=== PATIENT | male | born 1965 | race Caucasian/White ===

== ENCOUNTER 2021-11-29 11:00 | Outpatient (RCR) | payer MEDICARE, MEDICAID, SELFPAY ==
[2021-11-08 10:12] VITALS: BP 157/82; PULSE 91; RESP 18; TEMP 35.7; BMI 62.6
--- NOTE | 2021-11-08 11:34 | PCM.WC.HP ---
History of Present Illness Date of Service: 11/08/21 Chief Complaint: B/L lateral leg ulceration secondary to lymphedema History of Wound: This 56-year-old male presents to the wound care center for chronic ulceration to bilateral legs. Patient has had these wounds on and off for the past 8 years. Patient notes that he has had these wounds completely healed temporarily, but they frequently recur. Patient notes that he is primarily homebound secondary to spinal issues which she is underwent lumbar fusion and seen multiple pain management doctors for in the past. He notes that he is unable to lay flat in bed and sleeps in a recliner on a nightly basis. He notes that he does not dress the wounds on a daily basis as he believes dressings causing more problems. He denies any fever chills nausea vomiting chest pain calf pain shortness of breath at this time peer he notes he has just been washing the area with warm water a daily basis is the only treatment he is currently performing. He denies any history of lymphedema pumps. He notes pain to the wound sites as well as itching and burning to the adjacent areas this is primarily aggravated with manipulation of the wound. No other complaints. [facility] Medical History (Updated 11/08/21 @ 11:[address] Kyle Donovan, DPDelmar) Fusion of lumbar spine Home Medications citalopram 40 mg PO DAILY 11/08/21 [History Last Taken Unknown] furosemide 40 mg PO DAILY 11/08/21 [History Last Taken Unknown] lisinopril 20 mg PO DAILY 11/08/21 [History Last Taken Unknown] metoprolol succinate 50 mg PO DAILY 11/08/21 [History Last Taken Unknown] Allergy/AdvReac Type Severity Reaction Status Date / Time cephalexin Allergy Hives Verified 11/08/21 10:38 sulfamethoxazole Allergy Hives Verified 11/08/21 10:38 [From Sulfamethoxazole-Trimethoprim] trimethoprim Allergy Hives Verified 11/08/21 10:38 [From Sulfamethoxazole-Trimethoprim] celecoxib [From Celebrex] AdvReac Other Verified 11/08/21 10:38 Social History Smoking Status: Current every day smoker ROS Constitutional Constitutional: Reports systems reviewed and no addt'l complaints, except as documented; Denies as per HPI, anorexia, body ache(s), change in weight, chills, daytime sleepiness, difficulty sleeping, excessive sweating, fatigue, fever(s), frequent falls, headache(s), increased appetite, lethargy, malaise, night sweats, poor appetite, snoring, stops breathing during sleep, weakness, weight gain, weight loss or other Eyes Eyes: Denies systems reviewed and no addt'l complaints, except as documented, as per HPI, none, acute decrease in peripheral vision, blindness, blind spots, bloody eye, blurry vision, burning, change in eye color, change in vision, decreased night vision, diplopia, discharge from eye(s), discongugate gaze, double vision, dry eyes, erythema, excessive blinking, exophthalmos, eye pain, floaters, foreign body, halo effect, irritation, itchy eyes, loss of central vision, loss of peripheral vision, loss of vision, miosis, mydriasis, numbness, nystagmus, other visual disturbances, periorbital itching, photophobia, ptosis, puffy eyes, requires corrective lenses, seeing flashes, spots in vision, sunken eyes, tearing, tunnel vision or other ENT HEENT: Denies systems reviewed and no addt'l complaints, except as documented, as per HPI, none, abnormal hearing, bleeding gums, change in voice, dental pain, disequillibrium, dizziness, dry mouth, dysphagia, ear discharge, ear pain, epistaxis, facial pain, foreign body in nose, halitosis, headache(s), hearing loss, hoarseness, lip swelling, loss taste/smell, mouth lesions, mouth pain, mucositis, nasal congestion, nasal discharge, nasal obstruction, nasal trauma, neck mass, neck pain, nose pain, odynophagia, otalgia, post nasal drip, rhinorrhea, sinus pain, sinus pressure, sore throat, throat swelling, tinnitus, tongue swelling, vertigo or other Vital Signs Vital Signs Vital Signs: 11/08/21 10:12 Temperature 96.2 F L Temperature Source Temporal Pulse Rate 91 Respiratory Rate 18 Blood Pressure 157/82 H Blood Pressure Mean 107 Blood Pressure Source Monitor Blood Pressure Position Sitting Blood Pressure Location Left Forearm Oxygen Delivery Method Room Air Weight Weight: 181.437 kg Body Mass Index (BMI) 62.6 Physical Exam Narrative Patient ambulates unassisted patient alert oriented to person place and time. Vascular dorsalis pedis posterior tibial pulses evaluated. DP pulses palpable 2 out of 4 dopplerable as well. PT pulses unable to be dopplered secondary to lymphedema. Digital hair growth noted refill time brisk to digits 1 through 5. +3 pitting edema noted to bilateral lower extremity focal erythema edema circumferentially to the mid calf level adjacent to periwound areas. Neurologic: Light touch protective sensation is intact to bilateral lower extremities. Dermatologic: Multiple ulcerations to bilateral lower extremity all wounds appear to be demonstrated fibrogranular base predebridement with debridement was demonstrated 100% granular bases with clean skin edges however there is noted to be diffuse periwound edema and erythema no focal increase in warmth at this time. No evidence of deep probing or undermining. No evidence of fluctuance or crepitus to the wound or periwound areas. These wounds extend into the subcutaneous tissue and the pre and post debridement measurements are documented within the nursing notes. Musculoskeletal: No pain with gas with bilateral lower extremity muscular strength 5 out of 5 to bilateral lower extremity compartments no gross deformities noted to bilateral lower extremities. Debridement Note Debridement Note Wound debrided: Multiple wounds, bilateral legs Laterality: Not Applicable Wound Grade/Stage: stage II Type of Debridement: Excisional debridement Anesthesia Used: 5% Lidocaine Gel and Cetacaine Depth: in the subcutaneous layer Percentage of wound debrided: 100 Instrument Used: #15 blade Tissue Removed: non-viable/periwound hyperkeratosis Severity: Fat Layer Exposed Amount of bleeding with debridement: Mild Bleeding Controlled with: Pressure Patient tolerated procedure: Patient tolerated procedure well Debridement Free Text: pre and post debridement measurements documented in nursing notes. Operative Diagnosis: L97.222, L97.212 Post-Debridement Measurements and Additional Note: Post-Debridement Measurements/Treatment - Nurse 1 - General Ulcer Assessment Start: 11/08/21 08:05 Freq: Status: Active Protocol: [email or web address] Activity Type Activity Date Activity User E-Sign Co-Sign Detail Recorded Client Recorded Date Recorded By Document 11/08/21 10:12 [facility] [id number] 11/08/21 10:35 [facility] 11/08/21 10:12 - Today's Visit Information Type of service Initial Visit Arrival Mode Ambulatory Transfer Assistance None Patient Identification Verified (Name & Yes ) Height and Weight Height 5 ft 7 in Weight 181.437 kg Weight in Pounds 400.0 lbs Weight Measurement Method Stated by Patient Body Mass Index (BMI) 62.6 BMI Classification Obese BSA - Ashlie 2.71 Vital Signs Temperature (97.8 F-99.1 F) 96.2 F L Temperature Source Temporal Pulse Rate (60-100) 91 Pulse Location Monitor Respiratory Rate (12-18) 18 Respiratory rate source Observation Oxygen Delivery Method Room Air Blood Pressure (90/60-120/80) 157/82 H Blood Pressure Mean 107 Source Monitor Position Sitting Blood Pressure Location Left Forearm History Since Last Visit- (Skip if this is Patient's initial visit) Left Footwear Regular Shoe Right Footwear Regular Shoe Pain Scale: 0-10 Numeric Is Patient Pain Free? Yes Lower Extremity Assessment/ Foot Assessment/ Toe Nail Assessment Right -Posterior Tibial Palpable No -Posterior Tibial Doppler Inaudible -Dorsalis Pedis Palpable Yes -Dorsalis Pedis Doppler Multiphasic -Extremity Color Red,Hemosiderin -Hair Growth on Legs No -Hair Growth on Toes No -Temperature of Extremity Cool -Other Deformity No -Prior Foot Ulcer No -Charcot Joint No -Prior Amputation No -Thick Yes -Discolored Yes -Deformed No -Improper Length & Hygeine Yes Left -Posterior Tibial Palpable No -Posterior Tibial Doppler Inaudible -Dorsalis Pedis Palpable Yes -Dorsalis Pedis Doppler Multiphasic -Extremity Color Red,Hemosiderin -Hair Growth on Legs No -Hair Growth on Toes No -Temperature of Extremity Cool -Other Deformity No -Prior Foot Ulcer No -Charcot Joint No -Prior Amputation No -Deformed No -Improper Length & Hygeine Yes Neuropathy Assessment Feet - Top Side and Bottom <Entered> (a) Communication Assessment Preferred language Portuguese Manager Employment Required No Able to Read Yes Able to Write Yes Communication Tools None Right Hearing Abillity Normal Left Hearing Abillity Normal Visual Assistive Devices None Teaching Assessment Preferences Verbal,Written, Audio/Visual, Demonstration Barriers to Learning None Readiness To Learn Excellent Willingness to Engage in Self Management High Activies Readiness to Engage in Self Management High Activities Anxiety Level Anxious Cooperation Cooperative Perception Coherent Interest in Health Problem Asks Questions Education Importance Acknowledges Need Does Patient Smoke tobacco or other No substances Smoking Status Current every day smoker Is Patient Diabetic No Functional Assessment Recent Decline in Ability to Perform Ambulation Culture/Sikhism/Accounting Manager Cpa Cultural/Sikhism Needs that may affect No Treatment Plan (a) 1 - + WC - Nurse 1 - General Ulcer Measurement Start: 11/08/21 08:05 Freq: Status: Active Protocol: Activity Type Activity Date Activity User E-Sign Co-Sign Detail Recorded Client Recorded Date Recorded By Document 11/08/21 10:12 [facility] [id number] 11/08/21 10:35 [facility] 11/08/21 10:12 Wound Center Nurse 1 #6- L LAT LEG CLUSTER -Combined with other wound No -Current Size (cm) - Length 2.4 -Current Size (cm) - Width 3 -Current Size (cm) - Depth 0.1 -Total Square Cm 7.2 -Date of Last Picture (Recall this 11/08/21 field) -Photo Taken Yes -Epithelialization None Present -Tunneling No -Undermining/Tunneling No -Circular Undermining No -Exudate Amt Medium -Exudate Type Serosanguineous -Wound Margin Distinct, Outline Attached -Granulation Amt Medium (34-66%) -Granulation Quality Red -Slough/Fibrin Yes -Necrosis Amt Medium (34-66%) -Necrotic Tissue Type Adherent Slough -Texture (Polly-wound Skin Appearance) Assessed, Scarring -Moisture (Polly-wound Skin Appearance) Assessed,Dry/ Scaly -Color (Polly-wound Skin Appearance) Assessed, Erythema -Temperature (Polly-wound Skin No Abnormality Appearance) (Pt Warm) -Tenderness on Palpation (Polly-wound No Skin Appearance) -Ulcer Cleansing Rinsed/ Irrigated with Saline -Foul Odor after Cleansing No -Anesthetic Used 4% Lidocaine Solution #5- L MURDOCK CLUSTER -Combined with other wound No -Current Size (cm) - Length 9.3 -Current Size (cm) - Width 8.0 -Current Size (cm) - Depth 0.1 -Total Square Cm 74.40 -Date of Last Picture (Recall this 11/08/21 field) -Photo Taken Yes -Epithelialization None Present -Tunneling No -Undermining/Tunneling No -Circular Undermining No -Exudate Amt Medium -Exudate Type Serosanguineous -Wound Margin Distinct, Outline Attached -Granulation Amt Medium (34-66%) -Granulation Quality Red -Slough/Fibrin Yes -Necrosis Amt Medium (34-66%) -Necrotic Tissue Type Adherent Slough -Texture (Polly-wound Skin Appearance) Assessed, Scarring -Moisture (Polly-wound Skin Appearance) Assessed,Dry/ Scaly -Color (Polly-wound Skin Appearance) Assessed, Erythema -Temperature (Polly-wound Skin No Abnormality Appearance) (Pt Warm) -Tenderness on Palpation (Polly-wound Yes Skin Appearance) -Ulcer Cleansing Rinsed/ Irrigated with Saline -Foul Odor after Cleansing No -Anesthetic Used 4% Lidocaine Solution #4- R LAT LE INFERIOR -Combined with other wound No -Current Size (cm) - Length 4.5 -Current Size (cm) - Width 4.5 -Current Size (cm) - Depth 0.1 -Total Square Cm 20.25 -Date of Last Picture (Recall this 11/08/21 field) -Photo Taken Yes -Epithelialization None Present -Tunneling No -Undermining/Tunneling No -Circular Undermining No -Exudate Amt Medium -Exudate Type Serosanguineous -Wound Margin Distinct, Outline Attached -Granulation Amt Medium (34-66%) -Granulation Quality Red -Necrosis Amt Medium (34-66%) -Necrotic Tissue Type Adherent Slough -Texture (Polly-wound Skin Appearance) Assessed, Scarring -Moisture (Polly-wound Skin Appearance) Assessed,Dry/ Scaly -Color (Polly-wound Skin Appearance) Assessed, Erythema -Temperature (Polly-wound Skin No Abnormality Appearance) (Pt Warm) -Tenderness on Palpation (Polly-wound Yes Skin Appearance) -Ulcer Cleansing Rinsed/ Irrigated with Saline -Foul Odor after Cleansing No -Anesthetic Used 4% Lidocaine Solution #3 R LAT LE SUPERIOR -Combined with other wound No -Current Size (cm) - Length 2 -Current Size (cm) - Width 1.5 -Current Size (cm) - Depth 0.1 -Total Square Cm 3.0 -Date of Last Picture (Recall this 11/08/21 field) -Photo Taken No -Epithelialization None Present -Tunneling No -Undermining/Tunneling No -Circular Undermining No -Exudate Amt Medium -Exudate Type Serosanguineous -Wound Margin Distinct, Outline Attached -Granulation Amt Medium (34-66%) -Granulation Quality Red -Slough/Fibrin Yes -Necrosis Amt Medium (34-66%) -Necrotic Tissue Type Adherent Slough -Texture (Polly-wound Skin Appearance) Assessed, Scarring -Moisture (Polly-wound Skin Appearance) Assessed,Dry/ Scaly -Color (Polly-wound Skin Appearance) Assessed, Erythema -Temperature (Polly-wound Skin No Abnormality Appearance) (Pt Warm) -Tenderness on Palpation (Polly-wound Yes Skin Appearance) -Ulcer Cleansing Rinsed/ Irrigated with Saline -Foul Odor after Cleansing No -Anesthetic Used 4% Lidocaine Solution #2 R POST CALF CLUSTER -Combined with other wound No -Current Size (cm) - Length 11 -Current Size (cm) - Width 8 -Current Size (cm) - Depth 0.1 -Total Square Cm 88 -Date of Last Picture (Recall this 11/08/21 field) -Photo Taken Yes -Epithelialization None Present -Tunneling No -Undermining/Tunneling No -Circular Undermining No -Exudate Amt Medium -Exudate Type Serosanguineous -Wound Margin Distinct, Outline Attached -Granulation Amt Medium (34-66%) -Granulation Quality Red -Slough/Fibrin Yes -Necrosis Amt Medium (34-66%) -Necrotic Tissue Type Adherent Slough -Texture (Polly-wound Skin Appearance) Assessed, Scarring -Moisture (Polly-wound Skin Appearance) Assessed,Dry/ Scaly -Color (Polly-wound Skin Appearance) Assessed, Erythema -Temperature (Polly-wound Skin No Abnormality Appearance) (Pt Warm) -Tenderness on Palpation (Polly-wound Yes Skin Appearance) -Ulcer Cleansing Rinsed/ Irrigated with Saline -Foul Odor after Cleansing No -Anesthetic Used 4% Lidocaine Solution #1- R MURDOCK CLUSTER -Combined with other wound No -Current Size (cm) - Length 3.5 -Current Size (cm) - Width 4 -Current Size (cm) - Depth 0.1 -Total Square Cm 14.0 -Date of Last Picture (Recall this 11/08/21 field) -Photo Taken Yes -Epithelialization None Present -Tunneling No -Undermining/Tunneling No -Circular Undermining No -Exudate Amt Medium -Exudate Type Serosanguineous -Wound Margin Distinct, Outline Attached -Granulation Amt Large (67-100%) -Granulation Quality Red -Slough/Fibrin Yes -Necrosis Amt Small (1-33%) -Necrotic Tissue Type Adherent Slough -Texture (Polly-wound Skin Appearance) Assessed, Scarring -Moisture (Polly-wound Skin Appearance) Assessed,Dry/ Scaly -Color (Polly-wound Skin Appearance) Assessed, Erythema -Temperature (Polly-wound Skin No Abnormality Appearance) (Pt Warm) -Tenderness on Palpation (Polly-wound Yes Skin Appearance) -Ulcer Cleansing Rinsed/ Irrigated with Saline -Foul Odor after Cleansing No -Anesthetic Used 4% Lidocaine Solution Lower Limb Edema Present Yes Right Calf (cm) 60.5 Right Ankle (cm) 32.5 Left Calf (cm) 59 Left Ankle (cm) 31.5 WC - Nurse 2 - General Ulcer CM Notes Start: 11/08/21 08:05 Freq: Status: Active Protocol: Activity Type Activity Date Activity User E-Sign Co-Sign Detail Recorded Client Recorded Date Recorded By Document 11/08/21 10:51 [id number] 11/08/21 11:24 [facility] 11/08/21 10:51 Wound Center Nurse 2 #6- L LAT LEG CLUSTER -Time 11:03 -Correct Patient Yes -Correct Side, Site, Position Yes -Correct Procedure Yes -Procedure Performed Yes -Type of Procedure Debridement -Clinical Debridement Subcutaneous -Tissue Removed Subcutaneous -Post Debridement (cm) - Length 2.5 -Post Debridement (cm) - Width 3 -Post Debridement (cm) - Depth 1 -Total Square (Post) (cm) 7.5 -Area of Debridement (cm) - Length 2.5 -Area of Debridement (cm) - Width 3.0 -Total Square (Area) (cm) 7.50 -Tunneling No -Undermining/Tunneling No -Circular Undermining No -Wound/Ulcer Outcome Not Healed -Ulcer Cleansing Rinsed/ Irrigated with Saline -Foul Odor after Cleansing No -Bioengineered Tissue No -Bleeding Controlled with Pressure -Offloading No -Treatment Response Procedure Tolerated Well -Debridement - Subq, 1st 20sq cm No #5- L MURDOCK CLUSTER -Time 11:08 -Correct Patient Yes -Correct Side, Site, Position Yes -Correct Procedure Yes -Procedure Performed Yes -Type of Procedure Debridement -Clinical Debridement Subcutaneous -Tissue Removed Subcutaneous -Post Debridement (cm) - Length 9.4 -Post Debridement (cm) - Width 8 -Post Debridement (cm) - Depth 0.1 -Total Square (Post) (cm) 75.2 -Area of Debridement (cm) - Length 9.4 -Area of Debridement (cm) - Width 8.0 -Total Square (Area) (cm) 75.20 -Tunneling No -Undermining/Tunneling No -Circular Undermining No -Wound/Ulcer Outcome Not Healed -Ulcer Cleansing Rinsed/ Irrigated with Saline -Foul Odor after Cleansing No -Bioengineered Tissue No -Bleeding Controlled with Pressure -Offloading No -Treatment Response Procedure Tolerated Well -Debridement - Subq, 1st 20sq cm No #4- R LAT LE INFERIOR -Time 11:09 -Correct Patient Yes -Correct Side, Site, Position Yes -Correct Procedure Yes -Procedure Performed Yes -Type of Procedure Debridement -Clinical Debridement Subcutaneous -Tissue Removed Subcutaneous -Post Debridement (cm) - Length 4.6 -Post Debridement (cm) - Width 4.5 -Post Debridement (cm) - Depth 0.1 -Total Square (Post) (cm) 20.70 -Area of Debridement (cm) - Length 4.6 -Area of Debridement (cm) - Width 4.5 -Total Square (Area) (cm) 20.70 -Tunneling No -Undermining/Tunneling No -Circular Undermining No -Wound/Ulcer Outcome Not Healed -Ulcer Cleansing Rinsed/ Irrigated with Saline -Foul Odor after Cleansing No -Bioengineered Tissue No -Bleeding Controlled with Pressure -Offloading No -Treatment Response Procedure Tolerated Well -Debridement - Subq, 1st 20sq cm No #3 R LAT LE SUPERIOR -Time 11:09 -Correct Patient Yes -Correct Side, Site, Position Yes -Correct Procedure Yes -Procedure Performed Yes -Type of Procedure Debridement -Clinical Debridement Subcutaneous -Tissue Removed Subcutaneous -Post Debridement (cm) - Length 2.1 -Post Debridement (cm) - Width 1.5 -Post Debridement (cm) - Depth 0.1 -Total Square (Post) (cm) 3.15 -Area of Debridement (cm) - Length 2.1 -Area of Debridement (cm) - Width 1.5 -Total Square (Area) (cm) 3.15 -Tunneling No -Undermining/Tunneling No -Circular Undermining No -Wound/Ulcer Outcome Not Healed -Ulcer Cleansing Rinsed/ Irrigated with Saline -Foul Odor after Cleansing No -Bioengineered Tissue No -Bleeding Controlled with Pressure -Offloading No -Treatment Response Procedure Tolerated Well -Debridement - Subq, 1st 20sq cm No #2 R POST CALF CLUSTER -Time 11:10 -Correct Patient Yes -Correct Side, Site, Position Yes -Correct Procedure Yes -Procedure Performed Yes -Type of Procedure Debridement -Clinical Debridement Subcutaneous -Tissue Removed Subcutaneous -Post Debridement (cm) - Length 11 -Post Debridement (cm) - Width 8.1 -Post Debridement (cm) - Depth 0.1 -Total Square (Post) (cm) 89.1 -Area of Debridement (cm) - Length 11 -Area of Debridement (cm) - Width 8.1 -Total Square (Area) (cm) 89.1 -Tunneling No -Undermining/Tunneling No -Circular Undermining No -Wound/Ulcer Outcome Not Healed -Ulcer Cleansing Rinsed/ Irrigated with Saline -Foul Odor after Cleansing No -Bioengineered Tissue No -Bleeding Controlled with Pressure -Type of Offloading Total Contact Cast (TCC) - Left ($) -Treatment Response Procedure Tolerated Well -Debridement - Subq, 1st 20sq cm No #1- R MURDOCK CLUSTER -Time 11:10 -Correct Patient Yes -Correct Side, Site, Position Yes -Correct Procedure Yes -Procedure Performed Yes -Type of Procedure Debridement -Clinical Debridement Subcutaneous -Tissue Removed Subcutaneous -Post Debridement (cm) - Length 3.5 -Post Debridement (cm) - Width 4.1 -Post Debridement (cm) - Depth 0.1 -Total Square (Post) (cm) 14.35 -Area of Debridement (cm) - Length 3.5 -Area of Debridement (cm) - Width 4.1 -Total Square (Area) (cm) 14.35 -Tunneling No -Undermining/Tunneling No -Circular Undermining No -Wound/Ulcer Outcome Not Healed -Ulcer Cleansing Rinsed/ Irrigated with Saline -Foul Odor after Cleansing No -Bioengineered Tissue No -Bleeding Controlled with Pressure -Offloading No -Treatment Response Procedure Tolerated Well -Debridement - Subq, 1st 20sq cm Yes -Debridement, SubQ, ea addt'l 20sq cm 10 or part thereof Pain Scale: 0-10 Numeric Is Patient Pain Free? Yes Assessment/Plan Assessment/Plan (1) Stasis dermatitis: CODE(S): I87.2 - Venous insufficiency (chronic) (peripheral) QUALIFIERS: Laterality: bilateral Qualified Code(s): I87.2 - Venous insufficiency (chronic) (peripheral) (2) Leg ulcer: CODE(S): L97.909 - Non-pressure chronic ulcer of unspecified part of unspecified lower leg with unspecified severity QUALIFIERS: Laterality: unspecified laterality Non-pressure ulcer stage: with fat layer exposed Qualified Code(s): L97.902 - Non-pressure chronic ulcer of unspecified part of unspecified lower leg with fat layer exposed (3) Lymphedema: CODE(S): I89.0 - Lymphedema, not elsewhere classified PLAN: Patient examined and evaluated. All fine discussed with patient in detail. Detailed history and physical was performed. Patient has a 30-year history of smoking greater than a pack a day. He notes he is trying to quit smoking cessation counseling performed. Wounds to bilateral lower extremity were excisionally debrided as documented in the exam. This was performed without incident. Hemostasis obtained with light compression. Wounds were then cleansed with saline and dressed with silver alginate dry sterile dressing and Tubigrip to assist compression. Patient will keep this dressing intact for the next 2 to 3 days pending the amount of drainage. He will perform self dressing changes with silver alginate dressing dressing and Tubigrip. He will perform compression exercise and elevation to help edema management. Upon dressing changes he will apply triamcinolone acetonide 0.1% ointment to the periwound areas. This will assist the periwound stasis dermatitis and assist healing process as well as decrease patient's symptoms. He was counseled on this. Patient would likely benefit from lymphedema pumps, we will order baseline lab work including CBC BMP ESR CRP prealbumin including vascular studies. He will follow up in 1 week, at which time we may consider applying silver alginate under a 2 layer compression wrap with a nursing visit in between 1 week follow-ups versus dressing changes via home health care agency. Patient's goal is to continue to decrease smoking, elevate his legs at rest, perform exercise to help with edema management, maintain compression on the wound site.
[2021-11-29 10:47] VITALS: BP 118/53; PULSE 60; RESP 18; TEMP 36.1; BMI 62.6
--- NOTE | 2021-11-29 12:13 | PN_ITS ---
Subjective Subjective This 56-year-old male was seen in wound care center for bilateral leg ulcerations secondary to uncontrolled edema. Patient notes that he missed his last appointment because he is unable to leave his house due to chronic pain that he suffers from osteoarthritis at several sites. Patient notes that he was unable to apply current compression consistently to bilateral legs due to pain associated with his wound sites. Patient denies any fever chills nausea vomiting chest pain calf pain shortness of breath. Patient notes pain that is limited to his wounds and periwound areas. Patient has no other complaints. Objective Data Objective Data Vital Signs: Vital Signs Temp Pulse Resp BP 96.9 F L 60 18 118/53 L 11/29/21 10:47 11/29/21 10:47 11/29/21 10:47 11/29/21 10:47 Oxygen Delivery Method Room Air Weight: 181.437 kg Body Mass Index (BMI) 62.6 Physical Exam Narrative Patient ambulates unassisted patient alert oriented to person place and time. Vascular dorsalis pedis posterior tibial pulses evaluated. DP pulses palpable 2 out of 4 dopplerable as well. PT pulses unable to be dopplered secondary to lymphedema. Digital hair growth noted refill time brisk to digits 1 through 5. +3 pitting edema noted to bilateral lower extremity focal erythema edema circumferentially to the mid calf level adjacent to periwound areas. Neurologic: Light touch protective sensation is intact to bilateral lower extremities. Dermatologic: Multiple ulcerations to bilateral lower extremity all wounds appear to be demonstrated fibrogranular base predebridement with debridement was demonstrated 100% granular bases with clean skin edges however there is noted to be diffuse periwound edema and erythema no focal increase in warmth at this time. No evidence of deep probing or undermining. No evidence of fluctuance or crepitus to the wound or periwound areas. These wounds extend into the subc utaneous tissue and the pre and post debridement measurements are documented within the nursing notes. Musculoskeletal: No pain with gas with bilateral lower extremity muscular strength 5 out of 5 to bilateral lower extremity compartments no gross deformities noted to bilateral lower extremities. Const alert and oriented x3 Assessment & Plan Assessment/Plan (1) Stasis dermatitis: QUALIFIERS: Laterality: bilateral Qualified Code(s): I87.2 - Venous insufficiency (chronic) (peripheral) (2) Leg ulcer: QUALIFIERS: Laterality: unspecified laterality Non-pressure ulcer stage: with fat layer exposed Qualified Code(s): L97.902 - Non-pressure chronic ulcer of unspecified part of unspecified lower leg with fat layer exposed (3) Lymphedema: PLAN: Patient examined and evaluated. All fine discussed with patient in detail. Detailed history and physical was performed. Patient has a 30-year history of smoking greater than a pack a day. He notes he is trying to quit smoking cessation counseling performed. Wounds to bilateral lower extremity were excisionally debrided as documented in the exam. This was performed without incident. Hemostasis obtained with light compression. Wounds were then cleansed with saline and dressed with silver alginate dry sterile dressing and Tubigrip to assist compression. Patient very argumentative at his appointment today. Patient visibly agitated. Patient did not get lab work radiographs done as he was reports that he was unable to leave his house due to pain related to osteoarthritis in his neck shoulders hips and knees. Recommended referral back to pain management, patient defers. Multiple attempts to explain purpose of compression to bilateral lower extremity failed as patient was very argumentative and agitated whenever compression was brought up as he experiences pain when applying it. I discussed in detail with him that in order for his wounds to heal and progress and for the pain to resolve the need to heal via compression. Patient disagrees. Patient notes that no one is trying to help him. Again I have recommended referral to pain management and clinical psychology, patient defers. Wounds redressed today with silver alginate dry sterile dressing and Tubigrip. Recommended consistent use of compression dressings and follow-up in 3 weeks for continued care. Patient defers did not reschedule upon exiting.
== END 2021-11-29 11:59 | disposition home or self-care (01) ==
LOC: WC 11:00
PROVIDERS: PCP Family Medicine; Visit Provider Podiatrist
DX: I87.2 Venous insufficiency (chronic) (peripheral) (principal); L97.912 Non-pressure chronic ulcer of unspecified part of right lower leg with fat layer exposed; L97.922 Non-pressure chronic ulcer of unspecified part of left lower leg with fat layer exposed; E66.01 Morbid (severe) obesity due to excess calories; F17.200 Nicotine dependence, unspecified, uncomplicated; M19.90 Unspecified osteoarthritis, unspecified site; R60.0 Localized edema; I89.0 Lymphedema, not elsewhere classified; M47.812 Spondylosis without myelopathy or radiculopathy, cervical region
CPT/HCPCS: 11042; 11045; 29445; 99214; G0463